=== PATIENT | female | born 1935 | race Caucasian/White ===

== ENCOUNTER 2017-08-11 12:32 | Inpatient (IN) | payer OTHER ==
[~2017-08-11] VITALS: Ht 157.5 cm; Wt 83.5 kg
[2017-08-11] MEDS ORDERED: SYNTHROID88 MCG (13:13)
[2017-08-11] MEDS ORDERED: NOVOLIN R100 UNIT/1 (13:14)
[2017-08-11] MEDS ORDERED: LASIX20 MG (13:14)
[2017-08-11] MEDS ORDERED: LANTUS SOL100 UNIT/1 (13:14)
[2017-08-11] MEDS ORDERED: SIMVASTATIN20 MG (13:15)
[2017-09-09] MEDS ORDERED: HUMULIN N100 UNIT/2 SUBCUTANEO (16:13)
[2017-09-09] MEDS ORDERED: ISORDIL10 MG PO (16:13)
[2017-09-09] MEDS ORDERED: LEVOTHYROXINE88 MCG PO (16:13)
[2017-09-09] MEDS ORDERED: SILVER SULFADIA50 GM TOP (16:13)
[2017-09-09] MEDS ORDERED: LASIX20 MG PO (16:13)
[2017-09-09] MEDS ORDERED: LOTRISONE CREAM45 GM TOP (16:13)
[2017-09-09] MEDS ORDERED: LOSARTAN POTASS50 MG PO (16:13)
[2017-09-09] MEDS ORDERED: AMLODIPINE BESYL5 MG PO (16:13)
[2017-09-09] MEDS ORDERED: GABAPENTIN600 MG PO (16:13)
[2017-09-09] MEDS ORDERED: FLUCONAZOLE100 MG PO (16:13)
[2017-09-09] MEDS ORDERED: Coreg 3.125MG TABLET PO (16:13)
== END 2017-09-10 16:13 | DRG 335 ==
LOC: ER 12:32 → SURH 08-12 04:42 → MEDI 08-12 04:42 → SURH 08-13 18:31 → ICU 09-01 04:55 → SURH 09-08 19:31 → MEDI 09-08 19:31 → SURH 09-08 20:43
PROVIDERS: Surgery
PROC: 0WQF0ZZ Repair Abdominal Wall, Open Approach (ICD-10-PCS; 2017-08-12)
PROC: 0DN80ZZ Release Small Intestine, Open Approach (ICD-10-PCS; principal; 2017-08-12 12:15)
PROC: 4A033R1 Measurement of Arterial Saturation, Peripheral, Percutaneous Approach (ICD-10-PCS; 2017-08-16)
PROC: 02HV33Z Insertion of Infusion Device into Superior Vena Cava, Percutaneous Approach (ICD-10-PCS; 2017-08-17)
PROC: 3E0F7GC Introduction of Other Therapeutic Substance into Respiratory Tract, Via Natural or Artificial Opening (ICD-10-PCS; 2017-08-20)
PROC: BB24ZZZ Computerized Tomography (CT Scan) of Bilateral Lungs (ICD-10-PCS; 2017-08-23)
PROC: B246ZZZ Ultrasonography of Right and Left Heart (ICD-10-PCS; 2017-08-24)
PROC: 5A09557 Assistance with Respiratory Ventilation, Greater than 96 Consecutive Hours, Continuous Positive Airway Pressure (ICD-10-PCS; 2017-08-25)
PROC: 05HM33Z Insertion of Infusion Device into Right Internal Jugular Vein, Percutaneous Approach (ICD-10-PCS; 2017-08-30)
PROC: BW28ZZZ Computerized Tomography (CT Scan) of Head (ICD-10-PCS; 2017-08-30)
PROC: 4A12X4Z Monitoring of Cardiac Electrical Activity, External Approach (ICD-10-PCS; 2017-08-30)
PROC: B246ZZZ Ultrasonography of Right and Left Heart (ICD-10-PCS; 2017-08-31)
PROC: B54PZZZ Ultrasonography of Bilateral Upper Extremity Veins (ICD-10-PCS; 2017-09-01)
PROC: 4A12X4Z Monitoring of Cardiac Electrical Activity, External Approach (ICD-10-PCS; 2017-09-08)
DX: K42.0 Umbilical hernia with obstruction, without gangrene (principal); K63.1 Perforation of intestine (nontraumatic); J96.02 Acute respiratory failure with hypercapnia; I50.33 Acute on chronic diastolic (congestive) heart failure; E87.1 Hypo-osmolality and hyponatremia; F03.91 Unspecified dementia, unspecified severity, with behavioral disturbance; K56.51 Intestinal adhesions [bands], with partial obstruction; K91.31 Postprocedural partial intestinal obstruction; B37.49 Other urogenital candidiasis; T81.4XXA Infection following a procedure, initial encounter; L03.311 Cellulitis of abdominal wall; J44.1 Chronic obstructive pulmonary disease with (acute) exacerbation; J90 Pleural effusion, not elsewhere classified; J95.89 Other postprocedural complications and disorders of respiratory system, not elsewhere classified; J98.11 Atelectasis; N17.8 Other acute kidney failure; I97.131 Postprocedural heart failure following other surgery; E86.0 Dehydration; E11.65 Type 2 diabetes mellitus with hyperglycemia; E03.8 Other specified hypothyroidism; K52.89 Other specified noninfective gastroenteritis and colitis; Z78.1 Physical restraint status; B95.2 Enterococcus as the cause of diseases classified elsewhere; B96.1 Klebsiella pneumoniae [K. pneumoniae] as the cause of diseases classified elsewhere; B96.6 Bacteroides fragilis [B. fragilis] as the cause of diseases classified elsewhere; E66.01 Morbid (severe) obesity due to excess calories; B37.2 Candidiasis of skin and nail; G47.33 Obstructive sleep apnea (adult) (pediatric); N99.0 Postprocedural (acute) (chronic) kidney failure; I10 Essential (primary) hypertension